=== PATIENT | male | born 1970 | race Caucasian/White ===

== ENCOUNTER 2023-07-22 15:59 | Emergency (ER) | payer BC, SELFPAY ==
[2023-07-22 16:11] VITALS: BP 136/78; PULSE 98; RESP 18; TEMP 36.2; O2SAT 94; BMI 46.2
--- NOTE | 2023-07-22 16:28 | ED.WOUNDLAC ---
HPI - Wound/Laceration General Date Seen: 07/22/23 Chief Complaint: Laceration/Wound Stated Complaint: laceration on chin with saw Time Seen by Provider: 07/22/23 16:03 Source: patient Mode of arrival: ambulatory Limitations: no limitations History of Present Illness HPI narrative: Patient is a 52-year-old male presents emergency department for laceration to his chin and left forearm. Says he was cutting broach the chainsaw when slipped and hit him in the face and arm. This happened shortly prior to arrival. He does not know his last tetanus shot was. Denies any other injuries. No other concerns at this time. Related Data Home Medications Medication Instructions Recorded Confirmed bupropion HCl 300 mg 24 hr tablet, 300 mg PO DAILY 07/22/23 07/22/23 extended release hydrochlorothiazide 25 mg tablet 25 mg PO DAILY 07/22/23 07/22/23 lamotrigine 150 mg tablet 150 mg PO DAILY 07/22/23 07/22/23 losartan 50 mg tablet 50 mg PO DAILY 07/22/23 07/22/23 vilazodone 40 mg tablet 40 mg PO QAM 07/22/23 07/22/23 Previous Rx's Medication Instructions Recorded cephalexin 500 mg capsule 500 mg PO QID #20 caps 07/22/23 Allergies Allergy/AdvReac Type Severity Reaction Status Date / Time No Known Drug Allergies Allergy Verified 07/22/23 16:16 Review of Systems Narrative: Negative unless stated in HPI PFSH PFSH Social History Smoking Status: Never smoker How often do you have a drink containing alcohol: 2-4 times a month How many standard drinks containing alcohol do you have on a typical day: 3 or 4 How often do you have six or more drinks on one occasion: Never AUDIT-C Alcohol total score: 3 Non-prescribed substance use: denies use Exam Const: Vital Signs, click to edit/add: Vital Signs - 24 hr 07/22/23 16:11 Temperature 97.2 F L Pulse Rate [Pulse Oximeter] 98 Respiratory Rate 18 Blood Pressure [Ri ght Upper Arm] 136/78 Pulse Oximetry 94 Oxygen Delivery Me thod Room Air Course Vital Signs Vital signs: Initial Vital Signs Temperature 97.2 F L 07/22/23 16:11 Temperature Source Temporal Artery Scan 07/22/23 16:11 Pulse Rate 98 07/22/23 16:11 Respiratory Rate 18 07/22/23 16:11 Blood Pressure 136/78 07/22/23 16:11 Blood Pressure Mean 97 07/22/23 16:11 Blood Pressure Position Supine 07/22/23 16:11 Pulse Oximetry 94 07/22/23 16:11 Oxygen Delivery Method Room Air 07/22/23 16:11 Vital Signs Temperature 97.2 F L 07/22/23 16:11 Pulse Rate 98 07/22/23 16:11 Respiratory Rate 18 07/22/23 16:11 Blood Pressure 136/78 07/22/23 16:11 Pulse Oximetry 94 07/22/23 16:11 Oxygen Delivery Method Room Air 07/22/23 16:11 Temperature 97.2 F L 07/22/23 16:11 Pulse Rate 98 07/22/23 16:11 Respiratory Rate 18 07/22/23 16:11 Blood Pressure 136/78 07/22/23 16:11 Pulse Oximetry 94 07/22/23 16:11 Oxygen Delivery Method Room Air 07/22/23 16:11 MDM - Wound/Laceration MDM Narrative Medical decision making narrative: Patient is a 52-year-old male presenting emergency department for laceration repair. He was cut in the chin and forearm with a chainsaw. Wounds do not appear to require imaging at this time. Patient tolerated laceration repair well. No concerns. Since this is a relatively dirty wound considering the mechanism prophylactic antibiotics will be given. The small wound on his forearm the not want sewn up. It was rather superficial and this seems reasonable at this time Discharge Plan Discharge Clinical Impression: Laceration Patient Disposition: Home, Self-Care Condition: Stable Instructions: Facial Laceration (ED) Additional Instructions: Follow-up with your primary care provider in the next 7 days to have the service sutures removed. For next 6 months, once sutures are removed, whenever you goes outside put a tab of sunscreen over the laceration site to improve scar appearance. Topical antibiotics are not necessary at this time. Patient can shower but do not submerge the laceration until sutures are removed Prescriptions: New cephalexin 500 mg capsule 500 mg PO QID Qty: 20 0RF No Action losartan 50 mg tablet 50 mg PO DAILY lamotrigine 150 mg tablet 150 mg PO DAILY hydrochlorothiazide 25 mg tablet 25 mg PO DAILY bupropion HCl 300 mg tablet extended release 24 hr 300 mg PO DAILY vilazodone 40 mg tablet 40 mg PO QAM Follow Up/Referrals: Provider,Not a Local [Primary Care Provider] - Stand Alone Forms: [facility] Info Instructions Procedures Laceration Chin: Site: face (Chin) Size (cm): 1.5 Description: linear and clean Depth: simple, single layer Local Anesthetic: lidocaine 1% Amount of anesthesia used (mL): 3 Skin layer closed with: nylon Size (cm): 5-0 Number of sutures: 7 Technique: simple, interrupted Conclusion: patient tolerated procedure
== END 2023-07-22 17:03 | disposition home or self-care (01) ==
PROVIDERS: Emergency Provider Student in an Organized Health Care Education/Training Program
DX: S51.812A Laceration without foreign body of left forearm, initial encounter (principal); S01.81XA Laceration without foreign body of other part of head, initial encounter; W29.3XXA Contact with powered garden and outdoor hand tools and machinery, initial encounter
CPT/HCPCS: 12011; 90471; 90714; 99282; 99283